=== PATIENT | female | born 2000 | race African-American/Black ===

== ENCOUNTER 2021-04-16 14:01 | Emergency (ER) | payer OTHER ==
[2021-04-16 14:17] VITALS: RESP 16
[2021-04-16 15:07] LABS: Amorphous Sediment,Urine Rare /hpf; Appearance,Urine Cloudy (Clear); Bacteria,Urine Rare /hpf; Bilirubin,Urine Negative (Negative); Blood,Urine Moderate (Negative); Color,Urine Yellow; Glucose,Urine (UA) Negative (Negative); Ketones,Urine Trace (Negative); Leukocyte Esterase,Urine Negative (Negative); Mucus,Urine Rare /hpf; Nitrite,Urine Negative (Negative); Protein,Urine Negative (Negative); RBC,Urine 1 /hpf (0-5); Squamous Epithelial Cell,Urine 13 /hpf (0-4); Urobilinogen,Urine <2.0 mg/dL (<2.0); WBC,Urine 7 /hpf (0-5)
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
[2021-04-16 15:28] VITALS: BP 127/70; PULSE 72; TEMP 97.9
== END 2021-04-16 15:27 | disposition home or self-care (01) ==
LOC: EC 14:01
DX: B37.3 Candidiasis of vulva and vagina (principal); M54.5 Low back pain
CPT/HCPCS: 81001; 81025; 99284